=== PATIENT | male | born 1970 | race Two or more races ===

== ENCOUNTER 2017-01-06 15:09 | Emergency (ER) | payer OTHER ==
[~2017-01-06] VITALS: Ht 182.9 cm; Wt 83.4 kg
[~2017-01-06 15:09] MED LIST: OXYC20TA2 PO
[2017-01-06 15:12] VITALS: BP 125/87
[2017-01-06] MEDS ORDERED: LIDOCAINE 1%, 20ML ONE (15:43)
[2017-01-06] MEDS ORDERED: DIPH,PERTUSS(ACELL),TET VAC/PF 0.5 ML IM-VACC ONE ×2 (15:51→16:00)
[2017-01-06] MEDS ORDERED: LIDOCAINE 1%, 20ML SQ ONE (16:00)
== END 2017-01-06 17:08 | disposition home or self-care (01) ==
LOC: ED 16:50
DX: S51.812A Laceration without foreign body of left forearm, initial encounter (principal); S61.512A Laceration without foreign body of left wrist, initial encounter; W26.0XXA Contact with knife, initial encounter; Y93.89 Activity, other specified; Y92.009 Unspecified place in unspecified non-institutional (private) residence as the place of occurrence of the external cause; Y99.8 Other external cause status
CPT/HCPCS: 12004; 90471; 90715

== ENCOUNTER 2017-01-10 05:59 | Emergency (ER) | payer OTHER ==
[~2017-01-10] VITALS: Ht 182.9 cm; Wt 85.2 kg
[2017-01-10 06:00] VITALS: BP 115/82
== END 2017-01-10 06:40 | disposition home or self-care (01) ==
LOC: ED 06:09
DX: S61.512D Laceration without foreign body of left wrist, subsequent encounter (principal)
CPT/HCPCS: 99283